=== PATIENT | female | born 2000 | race Caucasian/White ===

== ENCOUNTER → 2020-02-04 | Outpatient (CLI) | payer OTHER ==
--- NOTE | 2020-02-04 19:05 | REP ---
Right hand series: Four views. History: Injury. Findings: Four views right hand demonstrate a transversely oriented nondisplaced fracture through the proximal diaphysis of the fifth metacarpal. There is mild associated soft-tissue swelling. Impression: Transverse fracture proximal diaphysis fifth metacarpal, nondisplaced. Electronically Signed by Dwight Spence MD 02/04/2020 06:57 P
== END ==
LOC: M RAD 18:23
PROVIDERS: ATTEND Physician Assistant
DX: S62.396A Other fracture of fifth metacarpal bone, right hand, initial encounter for closed fracture (principal); X58.XXXA Exposure to other specified factors, initial encounter; Y92.9 Unspecified place or not applicable

== ENCOUNTER 2021-02-08 16:07 | Emergency (ER) | payer OTHER ==
[~2021-02-08] VITALS: Ht 157.5 cm; Wt 54.5 kg
[2021-02-08] MEDS ORDERED: VALA500T5 (16:12)
[2021-02-08] MEDS ORDERED: NEXP1IMP SC (16:13)
[2021-02-08] MEDS ORDERED: AUGM875T28 PO (19:14)
[2021-02-08] MEDS ORDERED: BOOSTRIX/ADACEL VACCINE (DIPHTH/PERTUSS/ACELL/TETANUS) 0.5ML SYR IM ONE (19:15)
[2021-02-08] MEDS ORDERED: AUGMENTIN 875 MG TAB PO ONE (19:15)
[2021-02-08 19:45] VITALS: BP 129/74
== END 2021-02-08 19:55 | disposition home or self-care (01) ==
LOC: M ED 16:07
DX: S50.871A Other superficial bite of right forearm, initial encounter (principal); T14.8XXA Other injury of unspecified body region, initial encounter; L03.113 Cellulitis of right upper limb; W55.01XA Bitten by cat, initial encounter; Y92.009 Unspecified place in unspecified non-institutional (private) residence as the place of occurrence of the external cause; Y93.9 Activity, unspecified; Y99.9 Unspecified external cause status

== ENCOUNTER 2021-03-02 18:42 | Emergency (ER) | payer OTHER ==
[~2021-03-02] VITALS: Ht 157.5 cm; Wt 54.5 kg
[2021-03-02 18:42] VITALS: BP 141/80
[~2021-03-02 18:42] MED LIST: AUGM875T28 PO; NEXP1IMP SC; VALA500T5
[2021-03-02] MEDS ORDERED: AUGMENTIN 875 MG TAB PO ONE (21:00)
[2021-03-02] MEDS ORDERED: AUGM875T28 PO (21:05)
== END 2021-03-02 21:22 | disposition home or self-care (01) ==
LOC: M ED 18:42
DX: S81.851A Open bite, right lower leg, initial encounter (principal); W55.01XA Bitten by cat, initial encounter; Y92.9 Unspecified place or not applicable; Y93.9 Activity, unspecified; Y99.9 Unspecified external cause status; Z79.3 Long term (current) use of hormonal contraceptives

== ENCOUNTER 2023-11-19 22:55 | Emergency (ER) | payer OTHER ==
[~2023-11-19] VITALS: Ht 157.5 cm; Wt 72.5 kg
[~2023-11-19 22:55] MED LIST changes: +ETON68IM SC; -NEXP1IMP SC
[2023-11-19 23:56] LABS: BASO % 0.4 % (0.0-1.0); EOS # 0.1 10^3/uL (0.0-0.5); EOS % 0.9 % (0.0-3.0); HEMATOCRIT 37.1 % (36.0-47.0); HEMOGLOBIN 12.3 g/dl (12.0-15.5); LYMPH # 2.6 10^3/uL (1.5-5.0); LYMPH % 25.9 % (24.0-44.0); MEAN CORPUSCULAR HEMOGLOBIN 29.8 pg (27.0-33.0); MEAN CORPUSCULAR HGB CONC 33.2 g/dl (32.0-36.5); MEAN CORPUSCULAR VOLUME 89.8 fl (80.0-96.0); MONO # 0.7 10^3/uL (0.0-0.8); MONO % 6.6 % (2.0-8.0); NEUTROPHILS # 6.5 10^3/uL (1.5-8.5); NEUTROPHILS % 65.8 % (36.0-66.0); PLATELET COUNT, AUTOMATED 251 10^3/uL (150-450); RED BLOOD COUNT 4.13 10^6/uL (4.00-5.40); WHITE BLOOD COUNT 9.9 10^3/uL (4.0-10.0)
[2023-11-19] MEDS: NS 1,000 ML IV ONE (23:56)
[2023-11-20 00:23] LABS: LIPASE 40 U/L (12-53)
[2023-11-20 00:26] LABS: ALBUMIN 3.6 G/DL (3.2-5.2); ALKALINE PHOSPHATASE 69 U/L (46-116); ALT/SGPT 10 U/L (7.0-40); AST/SGOT 10 U/L (<34); BILIRUBIN,DIRECT 0.1 MG/DL (<0.4); BILIRUBIN,TOTAL 0.4 MG/DL (0.3-1.2); BLOOD UREA NITROGEN 9 MG/DL (9-23); CALCIUM LEVEL 8.7 MG/DL (8.5-10.1); CARBON DIOXIDE LEVEL 26 MMOL/L (20-31); CHLORIDE LEVEL 107 MMOL/L (98-107); GLOMERULAR FILTRATION RATE > 60.0 (>60); GLUCOSE, FASTING 116 MG/DL (60-100); POTASSIUM SERUM 3.9 MMOL/L (3.5-5.1); SODIUM LEVEL 139 MMOL/L (136-145); TOTAL PROTEIN 6.3 G/DL (5.7-8.2)
[2023-11-20 00:36] LABS: HCG, SERUM QUALITATIVE NEGATIVE (NEGATIVE)
[2023-11-20] MEDS ORDERED: ISOVUE-370 76% 100ML VIAL As Ordered ONE (00:57)
[2023-11-20 02:54] VITALS: BP 133/71; TEMP 97.9; O2SAT 98
[2023-11-20] MEDS: IBUPROFEN 600MG TAB PO ONE (03:05)
== END 2023-11-20 03:05 | disposition home or self-care (01) ==
LOC: M ED 22:55
DX: N83.291 Other ovarian cyst, right side (principal); F17.200 Nicotine dependence, unspecified, uncomplicated; Z79.899 Other long term (current) drug therapy
CPT/HCPCS: 74177; 76856; 80053; 81001; 82248; 83690; 84702; 84703; 85025; 93976; 96360; 99284; Q9967